=== PATIENT | male | born 1995 | race Two or more races ===

== ENCOUNTER → 2020-05-29 | Outpatient (CLI) | payer OTHER ==
[~2020-05-29] MED LIST: LISI-517 PO
== END ==
LOC: LAB 10:34
PROVIDERS: ATTEND Orthopaedic Surgery
DX: Z01.812 Encounter for preprocedural laboratory examination (principal); Z20.822 Contact with and (suspected) exposure to COVID-19
CPT/HCPCS: U0003

== ENCOUNTER 2020-06-01 08:56 | Day surgery (SDC) | payer OTHER ==
[~2020-06-01] VITALS: Ht 170.2 cm; Wt 89.4 kg
[~2020-06-01 08:56] MED LIST changes: +HYDROmorphone 2 MG/ML VIAL IVP PRN; +IV RINGERS,LACTATED 1000ML 1,000 ML IV SCH; +MORPHINE SULFATE 2 MG/ML VIAL. IVP PRN; +PROCHLORPERAZINE 10 MG/2 ML VIAL. IVP PRN
[2020-06-01] MEDS ORDERED: BUPIVACAINE-EPI 0.5% 30 ML VIAL KIT. ONE ×2 (09:01→10:04)
[2020-06-01] MEDS ORDERED: HYDR-2765 PO (09:28)
--- NOTE | 2020-06-01 09:29 | DISCH ---
DISCHARGE INSTRUCTIONS Condition on Discharge Condition on Discharge: Stable Activity After Discharge Activity Instructions for Disc: Other, see below (No agility maneuvers twisting and pivoting and avoid uneven ground. No bending operative knee past 90 degrees flexion) Weight Bearing Status after Di: As tolerated Diet after Discharge Diet after Discharge: Regular Wound Incision Care Wound/Incision Care: Change dressing (Remove dressing in 2 days may then shower no soaking until sutures removed) Contacting the DRCarmencita after DC Call your doctor for: Concerns you may have Follow-Up Follow up with: Dr. Hoffmann 10 days YVONNE HOFFMANN MD Jun 01, 2020 09:29
[2020-06-01] MEDS ORDERED: MIDAZOLAM HCL/PF 2 MG/2 ML VIAL. ONE (09:36)
[2020-06-01] MEDS ORDERED: fentaNYL PF VIAL 250 MCG/5 ML VIAL ONE (09:36)
[2020-06-01] MEDS ORDERED: PROPOFOL 10 MG/ML (20ML) VIAL. IV ONE (09:36)
[2020-06-01] MEDS ORDERED: LIDOCAINE 2% PF 5 ML VIAL. ONE (09:36)
[2020-06-01] MEDS ORDERED: HYDROcodone/APAP 7.5/325MG 1 TAB TABLET PO ONE (12:00)
[2020-06-01] MEDS ORDERED: fentaNYL PF VIAL 100 MCG/2 ML VIAL ONE ×3 (12:05→13:31)
[2020-06-01] MEDS: fentaNYL PF VIAL 100 MCG/2 ML VIAL IVP PRN ×6 (12:17→14:07)
[2020-06-01 13:05] VITALS: BP 144/84
--- NOTE | 2020-06-01 18:44 | PDOC4 ---
Operative Note Operative Note Date of surgery: 06/01/2020 Preoperative diagnosis: Left knee medial meniscus tear Postoperative diagnosis: Same with displaceable peripheral edge tear of body and posterior horn medial meniscus Operative procedure: Left knee arthroscopy medial meniscus repair Surgeon: Shun Identification And Records Commander: Bebeto vaz Anesthesia: General Estimated blood loss: 15 cc Complications: None Operative indications: Please see my preoperative orthopedic clinic evaluation for detailed operative indications and note that we had previously discussed structure and function of the meniscus and the findings of MRI and mechanical concerns with the displaced tear causing mechanical symptoms and potentially additional cartilage damage in the knee. We discussed risk benefits postoperative course of the arthroscopy procedure including the possibility of nonhealing and the rationale for platelet rich plasma augmentation to improve the healing rate possibility of continued pain nerve or blood vessel damage infection medical or other anesthetic complications among others and specifically the fact that I cannot do anything symptomatically about degenerative change which has to be treated symptomatically on an ongoing basis all his questions were answered he wishes to proceed with surgical evaluation and treatment Operative text: Patient was identified procedure verified patient placed in the supine position on the operating table. After adequate amounts of general ane sthesia were administered the left lower extremity was prepped and draped in standard sterile fashion with a thigh tourniquet. After timeout was performed patient procedure identified and verified the left lower extremity was exsanguinated by Esmarch bandage tourniquet inflated to 250 mmHg a lateral portal was established medial portal established using spinal needle localization and the knee joint was systematically examined. He was found to have a displaceable tear at the periphery of posterior horn and body of the medial meniscus which was probed and found to be grossly unstable. The periphery and joint capsule were rasped and trephinated to increase local blood flow and ACL was probed and found to be intact as was the lateral meniscus. No loose bodies noted in the gutters or suprapatellar pouch. Meniscal repair was carried out using the zone specific cannulas and a total of 3 vertical sutures were placed through the skin medially identified and clamped. With tension along these the meniscus was anatomically reduced and a total of 2 Biomet jugular stitch meniscal repair devices were placed vertically oriented in between the 3 sutures. Excellent apposition was obtained and integrity of the repair verified by probing. The joint was then drained of arthroscopic fluid, platelet rich plasma was injected underneath the repair and a medial incision was made and inside out sutures were retrieved and tied individually over the joint capsule, portals closed with nylon suture sterile soft dressings were applied patient was returned to recovery room in stable condition having tolerated procedure well. Bebeto Laguna facilities maintenance assistant present for the procedure and assisted in patient prepping draping instrument positioning closure and dressings YVONNE SOSA MD Jun 01, 2020 18:44
== END 2020-06-01 14:55 | disposition home or self-care (01) ==
LOC: EDBD → SURG 08:56 → EDUNIT# 14:10 → SURG 14:55
PROVIDERS: ATTEND Orthopaedic Surgery
DX: S83.242A Other tear of medial meniscus, current injury, left knee, initial encounter (principal); I10 Essential (primary) hypertension; Z79.899 Other long term (current) drug therapy; Z98.890 Other specified postprocedural states; Z72.89 Other problems related to lifestyle; X58.XXXA Exposure to other specified factors, initial encounter; Y93.89 Activity, other specified; Y92.89 Other specified places as the place of occurrence of the external cause; Y99.8 Other external cause status
CPT/HCPCS: 29881; 97116; 97162; C1713; J0690; J2250; J2704; J3010

== ENCOUNTER → 2021-07-24 | Outpatient (CLI) | payer OTHER ==
[~2021-07-24] MED LIST changes: +ASPI-630 PO; +HYDR-2765 PO; -HYDROmorphone 2 MG/ML VIAL IVP PRN; -IV RINGERS,LACTATED 1000ML 1,000 ML IV SCH; -LISI-517 PO; +LISI5TAB15 PO; -MORPHINE SULFATE 2 MG/ML VIAL. IVP PRN; +ONDA4TAB12 PO; +OXYC5TAB2 PO; -PROCHLORPERAZINE 10 MG/2 ML VIAL. IVP PRN
--- NOTE | 2021-07-24 16:59 | KCIC ---
EXAMINATION: MRI LEFT LOWER EXTREMITY JOINT WITHOUT INDICATIONS: Left knee pain medially for one month. Wrestling injury. Previous surgery in 2020. TECHNIQUE: Multiplanar multisequence MRI of the left knee was obtained without contrast. COMPARISON: None. FINDINGS: MENISCI: There is a bucket-handle tear of the medial meniscus with a large fragment flipped medially into the intercondylar notch. The lateral meniscus is intact. LIGAMENTS: The anterior and posterior cruciate ligaments are intact. The medial collateral ligament and lateral collateral ligament complex are intact. EXTENSOR MECHANISM: The quadriceps and patellar tendons are intact. Fat pads are normal. Retinacula are intact. BONES AND CARTILAGE: No acute fracture. Marrow signal is normal. Articular cartilage is intact. OTHER: Large joint effusion. No Mazariegos cyst. Muscles are normal. Mild edema along the medial aspect o f the knee. IMPRESSION: 1. Bucket-handle tear of the medial meniscus with large fragment flipped into the intercondylar notch . 2. Large joint effusion. Electronically signed by: Abby Neff MD (07/24/2021 4:56 PM) [id number]
== END ==
LOC: KCIC MRI 14:02
PROVIDERS: ATTEND Physician Assistant
DX: S83.212A Bucket-handle tear of medial meniscus, current injury, left knee, initial encounter (principal); M25.462 Effusion, left knee; M23.305 Other meniscus derangements, unspecified medial meniscus, unspecified knee; Z98.890 Other specified postprocedural states; X58.XXXA Exposure to other specified factors, initial encounter; Y93.89 Activity, other specified; Y92.89 Other specified places as the place of occurrence of the external cause; Y99.8 Other external cause status
CPT/HCPCS: 73721

== ENCOUNTER → 2021-08-07 | Outpatient (CLI) | payer OTHER | LOC: LAB 10:11 | PROVIDERS: ATTEND Orthopaedic Surgery | DX: Z01.812 Encounter for preprocedural laboratory examination (principal); Z20.822 Contact with and (suspected) exposure to COVID-19 | CPT/HCPCS: U0003 ==

== ENCOUNTER 2021-08-09 08:13 | Day surgery (SDC) | payer OTHER ==
[~2021-08-09] VITALS: Ht 170.2 cm; Wt 94.0 kg
[~2021-08-09 08:13] MED LIST changes: -ASPI-630 PO; +HYDROmorphone 2 MG/ML INJ. IVP PRN; +IV RINGERS,LACTATED 1000ML 1,000 ML IV SCH; +MORPHINE SULFATE 2 MG/ML INJ. IVP PRN; -ONDA4TAB12 PO; -OXYC5TAB2 PO; +PROCHLORPERAZINE 10 MG/2 ML VIAL. IVP PRN; +fentaNYL PF VIAL 100 MCG/2 ML VIAL IVP PRN
[2021-08-09] MEDS ORDERED: ONDA4TAB12 PO (09:06)
[2021-08-09] MEDS ORDERED: OXYC5TAB2 PO (09:06)
[2021-08-09] MEDS ORDERED: ASPI-630 PO (09:06)
--- NOTE | 2021-08-09 09:08 | DISCH ---
DISCHARGE INSTRUCTIONS Condition on Discharge Condition on Discharge: Stable Activity After Discharge Activity Instructions for Disc: Resume previous activity, Activity as ildefonso ated, Avoid exertion, Other, see below Bathing Instructions: Shower-keep dressing dry, No Tub Bath until see Lifting Instructions after Dis: No heavy lifting, Do not lift >10 pounds Exercise Instruction after Dis: Walk 10 min, 3 x per day Driving Instructions after Dis: Do not drive Weight Bearing Status after Di: Full weight bearing, As tolerated Diet after Discharge Diet after Discharge: Regular Wound Incision Care Wound/Incision Care: Ice to area for comfort, Keep wound elevated, Change dressing, Reinforce dressing PRN Contacting the DRCarmencita after DC Call your doctor for: If your condition worsens Follow-Up Follow up with: Follow up with orthopedic clinic in 2 weeks. [phone]. Treatment/Equipment after DC Adaptive Equipment Issued: None SANTOS JUAREZ Aug 09, 2021 09:08
[2021-08-09] MEDS ORDERED: BUPIVACAINE-EPI 0.25% 30 ML VIAL KIT. ONE (10:06)
[2021-08-09] MEDS ORDERED: fentaNYL PF VIAL 100 MCG/2 ML VIAL ONE ×2 (10:28→11:29)
[2021-08-09] MEDS ORDERED: PROPOFOL 10 MG/ML (20ML) VIAL. IV ONE (10:28)
--- NOTE | 2021-08-09 11:12 | PDOC4 ---
OPERATIVE NOTE Date: Date: Aug 09, 2021 Pre-Op Diagnosis: 1. 26-year-old male left knee bucket-handle medial meniscus tear Post-Op Diagnosis: Same Procedure Performed: 1. Left knee arthroscopy with near subtotal medial meniscectomy Surgeon: Zara Anesthesia Type: General Blood Loss: 20 cc Specimans Obtained: None Complications: Patient tolerated the procedure well without any apparent complications. Operative Note: See dictation SANTOS JUAREZ Aug 09, 2021 11:12
[2021-08-09] MEDS ORDERED: DEXAMETHASONE SOD PHOS 4 MG/ML VIAL ONE (11:17)
[2021-08-09] MEDS ORDERED: ONDANSETRON PF 4 MG/2 ML VIAL. ONE (11:17)
[2021-08-09] MEDS: fentaNYL PF VIAL 100 MCG/2 ML VIAL IVP PRN ×2 (11:40→11:59)
[2021-08-09] MEDS ORDERED: oxyCODONE IR 5 MG TABLET PO ONE (12:00)
[2021-08-09 12:15] VITALS: BP 146/91
--- NOTE | 2021-08-09 16:02 | OP ---
DATE OF SURGERY: 08/09/2021 PREOPERATIVE DIAGNOSIS: Medial meniscal tear, left knee bucket handle. POSTOPERATIVE DIAGNOSIS: Medial meniscal tear, left knee bucket handle. PROCEDURE: Left knee arthroscopy with partial medial meniscectomy. SURGEON: Jean Zuñiga Jr, DO CERTIFIED INCOME TAX PREPARER: Bebeto Laguna. ANESTHESIA: General. COMPLICATIONS: None. ESTIMATED BLOOD LOSS: 20 mL. PREOPERATIVE HISTORY: The patient has already undergone a medial meniscal repair and even though this was a retear bucket handle, I talked with him about the significance of resection versus repair. I have tried in the office multiple times as well as this morning prior to surgery to talk him into a medial meniscal repair. I do believe in the long run due to his age and his activity level that this would definitely be repairable and we can certainly take care of the situation with the meniscal repair rather than a meniscectomy; however, the patient has refused any type of meniscal repair at this point unfortunately. He does understand the risks and extremely high risk of undergoing significant degenerative changes in this medial compartment of this knee and life-altering changes; however, again he does not wish to have anything done other than the medial meniscectomy. DESCRIPTION OF PROCEDURE: The patient was taken to the operative suite, given a general anesthetic. Left lower extremity was placed in a knee zepeda, prepped and draped in sterile fashion. Inferomedial and inferolateral portals were established. Knee was insufflated with saline. Visualization of the patella and the patellofemoral joint and noted these to be intact tracking appropriately. No chondral lesions were noted along this area. No loose bodies were within the medial or lateral gutters, but upon entering the medial compartment, there was noted to be a tear of the inner two-thirds of the medial meniscus all the way from the root, which the root itself was intact all the way around to the anterior portion of this meniscus at least the posterior two-thirds of this as well. At this point, a partial medial meniscectomy was undertaken. This was taken back with basket forceps and a shaver as well as scissors and this was completely removed in its entirety. The remnant; however, again was the outer one-third of the meniscus around the entire periphery from the root posteriorly all the way until the anterior third, which the anterior third was completely intact, but the remainder was not obviously at this point. Thankfully, no chondral damage was noted on the femoral and tibial sides of the joint. The ACL and the PCL were probed and noted to be stable as well as the remnant of the meniscus medially. Probing of the medial meniscus laterally revealed there to be no tears, no chondral damage to the medial or the femoral or tibial sides of the joint. No other abnormalities were noted. Therefore, this was thoroughly irrigated and suctioned dry. All instruments were then removed. Sterile dressing was then applied. The patient was then taken from the operative bed to the postoperative bed, taken to the PACU in stable condition. JAMILA/ANJUM/KAISER DR: Soo TID: [id number]
== END 2021-08-09 13:00 | disposition home or self-care (01) ==
LOC: SURG 08:13
PROVIDERS: ATTEND Orthopaedic Surgery
DX: S83.212A Bucket-handle tear of medial meniscus, current injury, left knee, initial encounter (principal); I10 Essential (primary) hypertension; Z79.82 Long term (current) use of aspirin; Z79.899 Other long term (current) drug therapy; Z98.890 Other specified postprocedural states; X58.XXXA Exposure to other specified factors, initial encounter; Y93.89 Activity, other specified; Y92.89 Other specified places as the place of occurrence of the external cause; Y99.8 Other external cause status
CPT/HCPCS: 29881; A4930; A6457; J0690; J1100; J2405; J2704; J3010